=== PATIENT | female | born 1935 | race Caucasian/White ===

== ENCOUNTER 2016-08-11 11:56 | Inpatient (IN) | payer OTHER ==
[~2016-08-11] VITALS: Ht 162.6 cm; Wt 64.9 kg
[2016-08-11 16:22] VITALS: BP_SYST 141
[2016-08-11] MEDS ORDERED: OMEP20CA10 PO (16:35)
[2016-08-11] MEDS ORDERED: URSO300C24 PO (16:35)
[2016-08-11] MEDS ORDERED: LEVO50TA77 PO (16:35)
[2016-08-11] MEDS ORDERED: METO25TA3 PO (16:35)
[2016-08-11] MEDS ORDERED: VANCOMYCIN HCL 1 GM/NS PREMIX 250 ML IV ONE (18:00)
[2016-08-11] MEDS: traMADol HCL HCL 50 MG TABLET (ULTRAM) PO PRN ×2 (19:04→22:41)
[2016-08-11 19:30] VITALS: BP_SYST 154
[2016-08-11] MEDS: PIPERACILLIN/TAZO 2.25G/DEX-IS 50 ML IV SCH (21:45)
[2016-08-11 23:36] VITALS: BP_SYST 141
[2016-08-11] MEDS: HYDROcodone/ACETAMIN 5-325 MG TAB (NORCO/ VICODIN) PO PRN (23:57)
[2016-08-12] MEDS: PIPERACILLIN/TAZO 2.25G/DEX-IS 50 ML IV SCH ×4 (03:02→20:22)
[2016-08-12] MEDS: traMADol HCL HCL 50 MG TABLET (ULTRAM) PO PRN ×2 (03:03→20:22)
[2016-08-12 03:51] VITALS: BP_SYST 140
[2016-08-12] MEDS: LEVOTHYROXINE SODIUM 0.05 MG TABLET PO SCH (06:37)
[2016-08-12] MEDS: HYDROcodone/ACETAMIN 5-325 MG TAB (NORCO/ VICODIN) PO PRN ×2 (06:39→15:09)
[2016-08-12 07:14] LABS: CREATININE 0.98 mg/dL (0.55-1.30)
[2016-08-12 08:00] VITALS: BP_SYST 127
[2016-08-12 09:03] LABS: BASOPHILS % (AUTO) 0.2 % (0.0-2.0); EOSINOPHILS # (AUTO) 0.1 K/uL (0.0-0.4); EOSINOPHILS % (AUTO) 1.4 % (0.0-4.0); HEMATOCRIT 29.5 % (36-48); LYMPHOCYTES # (AUTO) 0.5 K/uL (1.0-5.5); LYMPHOCYTES % (AUTO) 13.6 % (20.5-51.5); MEAN CORPUSCULAR HEMOGLOBIN 34 pg (27-31); MEAN CORPUSCULAR HGB CONC 34 % (32-36); MEAN CORPUSCULAR VOLUME 101 fL (79.0-98.0); MONOCYTES # (AUTO) 0.3 K/uL (0.0-1.0); MONOCYTES % (AUTO) 8.8 % (1.7-9.3); NEUTROPHILS # (AUTO) 2.7 K/uL (1.8-7.7); RED BLOOD CELL COUNT(AUTO) 2.92 MIL/uL (4.2-6.2); RED CELL DISTRIBUTION WIDTH 14.5 % (9.0-15.0); WHITE BLOOD COUNT (AUTO) 3.6 K/uL (4.8-10.8)
[2016-08-12] MEDS: OMEPRAZOLE 20 MG CAPSULE.DR (PriLOSEC) PO SCH (09:08)
[2016-08-12] MEDS: METOPROLOL SUCCINATE 25 MG TAB.SR.24H (TOPROL XL) PO SCH (09:09)
[2016-08-12] MEDS: URSODIOL 300 MG CAPSULE PO SCH (09:09)
[2016-08-12 09:15] LABS: ANION GAP 7 (5-15); CALCIUM 8.7 mg/dL (8.4-11.0); CHLORIDE 101 mmol/L (98-107); CREATININE 0.96 mg/dL (0.55-1.30); GLUCOSE 101 mg/dL (70-99); POTASSIUM 5.2 mmol/L (3.5-5.1); SODIUM SERUM 135 mmol/L (136-145); TOTAL BILIRUBIN 0.7 mg/dL (0.0-1.0); UREA NITROGEN, BLOOD 13 mg/dL (8-21)
[2016-08-12 09:16] LABS: ALANINE AMINOTRANSFERASE 21 U/L (12-78); ALBUMIN 3.2 g/dL (3.4-4.8); ASPARTATE AMINOTRANSFERASE 32 U/L (10-37); TOTAL PROTEIN, SERUM 7.9 g/dL (6.4-8.3)
[2016-08-12 09:49] LABS: PLATELET COUNT (AUTO) 74 K/uL (130-430)
[2016-08-12 12:00] VITALS: BP_SYST 125
[2016-08-12 16:01] VITALS: BP_SYST 133
[2016-08-12] MEDS: VANCOMYCIN HCL 750 MG in NS 250 ML IV SCH (17:16)
[2016-08-12 20:00] VITALS: BP_SYST 139
[2016-08-12 23:57] VITALS: BP_SYST 120
[2016-08-13] MEDS: PIPERACILLIN/TAZO 2.25G/DEX-IS 50 ML IV SCH ×3 (02:40→15:00)
[2016-08-13 04:22] VITALS: BP_SYST 129
[2016-08-13] MEDS: LEVOTHYROXINE SODIUM 0.05 MG TABLET PO SCH (05:59)
[2016-08-13 08:00] VITALS: BP_SYST 135
[2016-08-13] MEDS: HYDROcodone/ACETAMIN 5-325 MG TAB (NORCO/ VICODIN) PO PRN ×2 (08:44→14:55)
[2016-08-13] MEDS: URSODIOL 300 MG CAPSULE PO SCH (08:44)
[2016-08-13] MEDS: OMEPRAZOLE 20 MG CAPSULE.DR (PriLOSEC) PO SCH (08:45)
[2016-08-13] MEDS: METOPROLOL SUCCINATE 25 MG TAB.SR.24H (TOPROL XL) PO SCH (08:46)
[2016-08-13 10:10] LABS: ANION GAP 6 (5-15); CALCIUM 8.7 mg/dL (8.4-11.0); CHLORIDE 98 mmol/L (98-107); CREATININE 0.86 mg/dL (0.55-1.30); GLUCOSE 129 mg/dL (70-99); SODIUM SERUM 132 mmol/L (136-145); UREA NITROGEN, BLOOD 11 mg/dL (8-21)
[2016-08-13 10:11] LABS: BASOPHILS % (AUTO) 0.3 % (0.0-2.0); EOSINOPHILS % (AUTO) 0.5 % (0.0-4.0); HEMATOCRIT 29.8 % (36-48); HEMOGLOBIN 10.1 g/dL (12.0-16.0); LYMPHOCYTES # (AUTO) 0.4 K/uL (1.0-5.5); LYMPHOCYTES % (AUTO) 10.6 % (20.5-51.5); MEAN CORPUSCULAR HEMOGLOBIN 34 pg (27-31); MEAN CORPUSCULAR HGB CONC 34 % (32-36); MEAN CORPUSCULAR VOLUME 100 fL (79.0-98.0); MONOCYTES # (AUTO) 0.2 K/uL (0.0-1.0); MONOCYTES % (AUTO) 4.8 % (1.7-9.3); NEUTROPHILS % (AUTO) 83.8 % (40.0-70.0); RED CELL DISTRIBUTION WIDTH 14.3 % (9.0-15.0); WHITE BLOOD COUNT (AUTO) 3.6 K/uL (4.8-10.8)
[2016-08-13 10:15] LABS: ALANINE AMINOTRANSFERASE 19 U/L (12-78); ALBUMIN 3.2 g/dL (3.4-4.8); ASPARTATE AMINOTRANSFERASE 27 U/L (10-37); INR 1.1 (0.8-1.2); PROTHROMBIN TIME 11.5 SECS (9.5-12.5); TOTAL BILIRUBIN 0.7 mg/dL (0.0-1.0); TOTAL PROTEIN, SERUM 8.3 g/dL (6.4-8.3)
[2016-08-13 11:16] LABS: PLATELET COUNT (AUTO) 85 K/uL (130-430)
[2016-08-13 11:37] VITALS: BP_SYST 136
[2016-08-13 15:28] VITALS: BP_SYST 113
[2016-08-13] MEDS: VANCOMYCIN HCL 750 MG in NS 250 ML IV SCH (17:12)
[2016-08-13 19:45] VITALS: BP_SYST 121
[2016-08-14] MEDS: PIPERACILLIN/TAZO 2.25G/DEX-IS 50 ML IV SCH ×5 (00:27→20:08)
[2016-08-14] MEDS: HYDROcodone/ACETAMIN 5-325 MG TAB (NORCO/ VICODIN) PO PRN ×3 (01:20→20:10)
[2016-08-14 04:00] VITALS: BP_SYST 115
[2016-08-14] MEDS: LEVOTHYROXINE SODIUM 0.05 MG TABLET PO SCH (06:18)
[2016-08-14 08:00] VITALS: BP_SYST 141
[2016-08-14] MEDS: METOPROLOL SUCCINATE 25 MG TAB.SR.24H (TOPROL XL) PO SCH (09:06)
[2016-08-14] MEDS: URSODIOL 300 MG CAPSULE PO SCH (09:07)
[2016-08-14] MEDS: OMEPRAZOLE 20 MG CAPSULE.DR (PriLOSEC) PO SCH (09:07)
[2016-08-14] MEDS: traMADol HCL HCL 50 MG TABLET (ULTRAM) PO PRN ×2 (09:07→23:55)
[2016-08-14 12:23] VITALS: BP_SYST 135
[2016-08-14 12:39] VITALS: BP_SYST 128
[2016-08-14] MEDS: VANCOMYCIN HCL 750 MG in NS 250 ML IV SCH (18:18)
[2016-08-14 20:05] VITALS: BP_SYST 143
[2016-08-15 01:13] VITALS: BP_SYST 126
[2016-08-15] MEDS: PIPERACILLIN/TAZO 2.25G/DEX-IS 50 ML IV SCH ×2 (03:02→09:04)
[2016-08-15 04:09] VITALS: BP_SYST 121
[2016-08-15] MEDS: HYDROcodone/ACETAMIN 5-325 MG TAB (NORCO/ VICODIN) PO PRN ×2 (05:01→12:13)
[2016-08-15] MEDS: LEVOTHYROXINE SODIUM 0.05 MG TABLET PO SCH (07:34)
[2016-08-15 08:00] VITALS: BP_SYST 151
[2016-08-15] MEDS: METOPROLOL SUCCINATE 25 MG TAB.SR.24H (TOPROL XL) PO SCH (09:03)
[2016-08-15] MEDS: OMEPRAZOLE 20 MG CAPSULE.DR (PriLOSEC) PO SCH (09:03)
[2016-08-15] MEDS: URSODIOL 300 MG CAPSULE PO SCH (09:04)
[2016-08-15 12:28] VITALS: BP_SYST 138
== END 2016-08-15 13:00 | disposition home health service (06) | DRG 603 ==
LOC: SMU 15:14
PROVIDERS: ADMIT Internal Medicine Hospice and Palliative Medicine; ATTEND Internal Medicine Hospice and Palliative Medicine
PROC: CW2D1ZZ Tomographic (Tomo) Nuclear Medicine Imaging of Lower Extremity using Technetium 99m (Tc-99m) (ICD-10-PCS; principal; 2016-08-12)
PROC: 02HV33Z Insertion of Infusion Device into Superior Vena Cava, Percutaneous Approach (ICD-10-PCS; 2016-08-14)
PROC: B548ZZA Ultrasonography of Superior Vena Cava, Guidance (ICD-10-PCS; 2016-08-14)
DX: L03.116 Cellulitis of left lower limb (principal); E03.9 Hypothyroidism, unspecified; K74.60 Unspecified cirrhosis of liver; I10 Essential (primary) hypertension; Z86.19 Personal history of other infectious and parasitic diseases; Z88.2 Allergy status to sulfonamides
CPT/HCPCS: 36415; 71010; 73721; 78315; 80053; 82565-TC; 84520-TC; 85025; 85610-TC; 85730-TC; 87040-TC; 87070-TC; 87186-TC; A9503; C1751; J2543; J3370; J7040; J7050

== ENCOUNTER 2017-09-29 09:17 | Outpatient (CLI) | payer OTHER ==
[~2017-09-29 09:17] MED LIST: LEVO50TA77 PO; METO25TA3 PO; OMEP20CA10 PO; URSO300C24 PO
== END 2017-09-29 20:28 | disposition home or self-care (01) ==
LOC: SMA 09:17
PROVIDERS: ATTEND Family Medicine
DX: Z12.31 Encounter for screening mammogram for malignant neoplasm of breast (principal)
CPT/HCPCS: 77067